=== PATIENT | male | born 1935 | race African-American/Black ===

== ENCOUNTER 2022-01-22 12:33 | Emergency (ER) | payer OTHER ==
[~2022-01-22] VITALS: Ht 182.9 cm; Wt 91.0 kg
[2022-01-22] MEDS ORDERED: SODIUM CHLORIDE 0.9% 1,000 ML IV ONE (14:45)
[2022-01-22 15:01] LABS: BASOPHILS % 0.6 % (0.0-2.0); EOSINOPHILS % 6.8 % (0.0-5.0); HEMATOCRIT. 26.4 % (42.0-52.0); HEMOGLOBIN. 8.6 g/dL (14.0-18.0); LYMPHOCYTES % 7.5 % (20.0-50.0); MEAN CORPUSCULAR VOLUME 92.8 fL (80.0-94.0); MEAN PLATELET VOLUME 7.4 fl (7.4-10.4); MONOCYTES % 7.9 % (2.0-8.0); NEUTROPHILS % 77.2 % (40.0-76.0); PLATELET 221 x1000/uL (130-400); RED BLOOD CELL COUNT 2.85 mill/uL (4.7-6.1); RED CELL DISTRIBUTION WIDTH 16.8 % (11.6-14.6)
[2022-01-22 15:11] LABS: CHLORIDE 100 mEq/L (98-107)
[2022-01-22] MEDS ORDERED: OSELTAMIVIR 75MG CAPSULE PO ONE (16:15)
[2022-01-22] MEDS ORDERED: PIPERACILLIN/TAZ 3.375G PREMIX 50 ML IV ONE (16:15)
[2022-01-22] MEDS ORDERED: VANCOMYCIN 1G PREMIX 200 ML IV NR (16:15)
[2022-01-22] MEDS ORDERED: VANCOMYCIN 1G PREMIX 200 ML IV ONE (16:15)
[2022-01-22] MEDS ORDERED: SODIUM CHLORIDE 0.9% 1000ML BAG (SEPSIS BOLUS) IV ONE (16:15)
[2022-01-22 21:17] VITALS: BP 166/76
== END 2022-01-22 21:30 | disposition short-term general hospital (02) ==
LOC: ER 12:45
DX: R53.1 Weakness (principal); J18.9 Pneumonia, unspecified organism; Y95 Nosocomial condition; I13.2 Hypertensive heart and chronic kidney disease with heart failure and with stage 5 chronic kidney disease, or end stage renal disease; E11.22 Type 2 diabetes mellitus with diabetic chronic kidney disease; N18.6 End stage renal disease; I50.9 Heart failure, unspecified; Z99.2 Dependence on renal dialysis; Z20.822 Contact with and (suspected) exposure to COVID-19; Z98.890 Other specified postprocedural states
CPT/HCPCS: 36415; 71045; 80053; 83605; 83880; 84484; 85025; 87040; 87426; 87804; 93005; 96365; 96375; 99285; C9803; J2543; J3370; J7030